=== PATIENT | female | born 1955 | race African-American/Black ===

== ENCOUNTER 2017-07-16 22:39 | Emergency (ER) | payer MEDICAID ==
[~2017-07-16] VITALS: Ht 167.6 cm; Wt 78.5 kg
[~2017-07-16 22:39] MED LIST: AMLODIPINE BES2.5 MG ORAL; CRESTOR10 M1 ORAL; HYDROCHLOROTH12.5 M2 ORAL; KEFLEX500 MG ORAL; METFORMIN HCL500 M1 ORAL; TENORMIN25 MG ORAL; TRAMADOL HCL50 MG ORAL
[2017-07-16] MEDS ORDERED: AMLODIPINE BESYL5 MG ORAL (22:54)
[2017-07-16 22:58] VITALS: BP 150/93
--- NOTE | 2017-07-16 23:13 | Emergency Room Report ---
History of Present Illness General Chief Complaint: Back Pain-No Injury Source: Patient Present Illness HPI This is a 61-year-old female with history of bursitis to her bilateral hip. She 's only on Ultram. She presents with chief complaint of lower back pain. Onset was about a week ago when she bent over to fix the bed. Since then it has been progressively getting worse. No unconscious of bowel or urine. Pain is localized to the lower lumbar/buttock area. Mostly on the right side. Pain is sharp, 9/10. Anesthesia. No urinary complaint. Allergies: Coded Allergies: No Known Allergies (Unverified , 03/15/14) Patient History Past Medical History: see triage record, old chart reviewed Past Surgical History: other Pertinent Family History: none Social History: Denies: smoking Now: No Immunizations: other Reviewed Nursing Documentation: PMH: Agreed, PSxH: Agreed Nursing Documentation-PMH Hx Hypertension: Yes Hx Diabetes: Yes Review of Systems Eye: Denies: eye pain, blurred vision ENT: Denies: ear pain, nose congestion, throat swelling Respiratory: Denies: cough, shortness of breath Cardiovascular: Denies: chest pain, palpitations Gastrointestinal: Denies: abdominal pain, diarrhea, nausea, vomiting Musculoskeletal: Reports: back pain, Denies: joint pain Skin: Denies: rash Neurological: Denies: headache, numbness Endocrine: Denies: increased thirst, increased urine Hematologic/Lymphatic: Denies: easy bruising All Other Systems: negative except mentioned in HPI Physical Exam Vital Signs Date Time Temp Pulse Resp B/P (MAP) Pulse Ox O2 Delivery O2 Flow Rate FiO2 07/16/17 22:48 98.2 67 16 150/93 97 Room Air vitals with high blood pressure Sp02 EP Interpretation: reviewed, normal General Appearance: well appearing, no apparent distress, alert Head: normocephalic, atraumatic Eyes: bilateral eye PERRL, bilateral eye EOMI ENT: hearing grossly normal, normal pharynx Neck: full range of motion, supple, no meningismus Respiratory: chest non-tender, lungs clear, normal breath sounds Cardiovascular #1: regular rate, rhythm, no murmur Gastrointestinal: normal bowel sounds, non tender, no mass, no organomegaly, no bruit, non-distended Musculoskeletal: back normal - Diffuselower back tenderness., gait/station normal, normal range of motion Neurologic: alert, oriented x3 Psychiatric: mood/affect normal Skin: warm/dry Medical Decision Making Diagnostic Impression: Primary Impression: Back pain Qualified Codes: M54.5 - Low back pain ER Course Patient with back pain. No fracture or dislocation. No evidence of cauda equina syndrome, spinal epidural abscess or neoplastic process. We'll discharge home. CT/MRI/US Diagnostic Results CT/MRI/US Diagnostic Results : Imaging Test Ordered: CT lumbar spine Impression Negative per radiologist Last Vital Signs Date Time Temp Pulse Resp B/P (MAP) Pulse Ox O2 Delivery O2 Flow Rate FiO2 07/16/17 22:48 98.2 67 16 150/93 97 Room Air Status: improved Disposition: HOME, SELF-CARE Condition: Stable Scripts Ibuprofen* (MOTRIN*) 600 Mg Tablet 600 MG ORAL Q8H Y for For Pain, #30 TAB 0 Refills Prov: MANINDER RICARDO M.D. 07/17/17 Hydrocodone/Acetaminophen 5-325* (HYDROCODONE/ACETAMINOPHEN 5-325*) 1 Each Tablet 1 TAB ORAL Q6H Y for For Pain, #20 TAB 0 Refills Prov: MANINDER RICARDO M.D. 07/17/17 Patient Instructions: Back Pain, Adult Additional Instructions: Followup with your Dr. in 7 days. Return if worse. MANINDER RICARDO M.D. Jul 16, 2017 23:13
[2017-07-16] MEDS ORDERED: HYDROmorphone 1mg/ml Carpuject IM ONE (23:15)
[2017-07-17 00:42] VITALS: BP 143/71
[2017-07-17 00:51] LABS: APPEARANCE,URINE CLEAR; KETONES,URINE NEGATIVE (NEGATIVE); LEUKOCYTE ESTERASE ,URINE NEGATIVE (NEGATIVE); NITRITE,URINE NEGATIVE (NEGATIVE); PH,URINE 5 (4.5-8.0); PROTEIN,URINE NEGATIVE (NEGATIVE); UROBILINOGEN,URINE NORMAL MG/DL (0.0-1.0)
[2017-07-17] MEDS ORDERED: HYDROCODON-ACE1 EA15 ORAL (01:02)
[2017-07-17] MEDS ORDERED: IBUPROFEN600 MG ORAL (01:02)
[2017-07-17 01:11] VITALS: BP 143/71
--- NOTE | 2017-07-17 09:23 | Diagnostic Imaging Report ---
Indications: PAIN back pain Technique: Spiral acquisitions obtained through the lumbar spine. Multiplanar reconstructions were generated. No IV contrast utilized. Total dose length product 507 mGycm. CTDIvol(s) 15 mGy. Dose reduction achieved using automated exposure control Comparison: None Findings: Bony alignment is normal. Vertebral body heights are preserved. Disc spaces are preserved. No evidence of acute fracture. There is suggestion of an old possibly incompletely healed fracture of the right L1 transverse process. At L1-2, there is a small focal ossification of the posterior longitudinal ligament. This does not significantly compromise the spinal canal. At the remaining disc levels, no significant disc bulge or protrusion, spinal stenosis, or neural foraminal stenosis. The included extraspinal soft tissues are unremarkable. Impression: No acute process This agrees with the preliminary interpretation provided overnight by [facility] teleradiology service. The CT scanner at [facility] is accredited by the [employer] and the scans are performed using protocols designed to limit radiation exposure to as low as reasonably achievable to attain images of sufficient resolution adequate for diagnostic evaluation.
== END 2017-07-17 01:12 | disposition home or self-care (01) ==
LOC: EMR 23:06
DX: M54.5 Low back pain (principal); E11.9 Type 2 diabetes mellitus without complications; I10 Essential (primary) hypertension
CPT/HCPCS: 72131; 81003; 96372; 99284; J1170

== ENCOUNTER 2017-08-08 23:28 | Emergency (ER) | payer OTHER ==
[~2017-08-08] VITALS: Ht 167.6 cm; Wt 79.4 kg
[~2017-08-08 23:28] MED LIST changes: +AMLODIPINE BESYL5 MG ORAL; +HYDROCODON-ACE1 EA15 ORAL; +IBUPROFEN600 MG ORAL
[2017-08-08] MEDS ORDERED: LIPITOR80 MG ORAL (23:49)
[2017-08-08] MEDS ORDERED: GLIPIZIDE5 MG ORAL (23:49)
[2017-08-08 23:50] VITALS: BP 141/73
--- NOTE | 2017-08-08 23:50 | Emergency Room Report ---
History of Present Illness General Chief Complaint: Neck Pain Source: Patient Present Illness HPI Is a 61-year-old female with history hypertension diabetes. She presents with chief complaint of neck pain. Onset was yesterday. She felt some right-sided neck pain after she was on the computer. She went to sleep and woke up this morning with more severe pain. Fell spasm to the right eye the neck. Unable to turn her neck. No trauma. No fever chills but no nausea no vomiting. No focal deficit. Pain radiates to her shoulder and upper arm. Worse with movement. Pain is 10 out of 10. Allergies: Coded Allergies: No Known Allergies (Unverified , 03/15/14) Patient History Past Medical History: see triage record, old chart reviewed, DM, HTN Past Surgical History: other Pertinent Family History: none Social History: Denies: smoking Now: No Immunizations: other Reviewed Nursing Documentation: PMH: Agreed, PSxH: Agreed Nursing Documentation-PMH Past Medical History: No History, Except For Hx Hypertension: Yes Hx Diabetes: Yes - Type 2 Review of Systems Eye: Denies: eye pain, blurred vision ENT: Denies: ear pain, nose congestion, throat swelling Respiratory: Denies: cough, shortness of breath Cardiovascular: Denies: chest pain, palpitations Gastrointestinal: Denies: abdominal pain, diarrhea, nausea, vomiting Musculoskeletal: Reports: muscle pain, Denies: back pain, joint pain Skin: Denies: rash Neurological: Denies: headache, numbness Endocrine: Denies: increased thirst, increased urine Hematologic/Lymphatic: Denies: easy bruising All Other Systems: negative except mentioned in HPI Physical Exam Vital Signs Date Time Temp Pulse Resp B/P (MAP) Pulse Ox O2 Delivery O2 Flow Rate FiO2 08/08/17 23:37 98.2 76 16 141/73 98 Room Air vitals normal Sp02 EP Interpretation: reviewed, normal General Appearance: well appearing, no apparent distress, alert Head: normocephalic, atraumatic Eyes: bilateral eye PERRL, bilateral eye EOMI ENT: hearing grossly normal, normal pharynx Neck: no meningismus, tender - Spasm and tenderness over the trapezius and sternocleidomastoid muscle on right side. Unable to turn her head. Respiratory: chest non-tender, lungs clear, normal breath sounds Cardiovascular #1: regular rate, rhythm, no murmur Gastrointestinal: normal bowel sounds, non tender, no mass, no organomegaly, no bruit, non-distended Musculoskeletal: back normal, gait/station normal, normal range of motion Psychiatric: mood/affect normal Skin: warm/dry Medical Decision Making Diagnostic Impression: Primary Impression: Torticollis, acute ER Course This patient presents with torticollis. No evidence of trauma. No evidence of meningitis. Better after Ativan and [place]. We'll discharge home. Last Vital Signs Date Time Temp Pulse Resp B/P (MAP) Pulse Ox O2 Delivery O2 Flow Rate FiO2 08/08/17 23:37 98.2 76 16 141/73 98 Room Air Status: improved Disposition: HOME, SELF-CARE Condition: Stable Scripts Hydrocodone/Acetaminophen 5-325* (HYDROCODONE/ACETAMINOPHEN 5-325*) 1 Each Tablet 1 TAB ORAL Q6H Y for For Pain, #20 TAB 0 Refills Prov: MANINDER RICARDO M.D. 08/09/17 Diazepam* (VALIUM*) 5 Mg Tablet 5 MG ORAL TID Y for spasm, #21 TAB 0 Refills Prov: MANINDER RICARDO M.D. 08/09/17 Additional Instructions: Followup with your Dr. in 7 days. Warm compress to the area. Return if worse. MANINDER RICARDO M.D. Aug 08, 2017 23:50
[2017-08-09] MEDS ORDERED: Norco 5mg/325mg tab ORAL ONE
[2017-08-09] MEDS ORDERED: LORazepam Inj 2mg/ml 1ml IM ONE
[2017-08-09] MEDS ORDERED: VALIUM5 MG ORAL (01:04)
[2017-08-09] MEDS ORDERED: HYDROCODON-ACE1 EA15 ORAL (01:04)
[2017-08-09 01:14] VITALS: BP 133/67
== END 2017-08-09 01:14 | disposition home or self-care (01) ==
LOC: EMR 23:55
DX: M43.6 Torticollis (principal); M54.2 Cervicalgia; I10 Essential (primary) hypertension; E11.9 Type 2 diabetes mellitus without complications; M79.1 Myalgia
CPT/HCPCS: 96372; 99284